=== PATIENT | male | born 1940 | race Caucasian/White ===

== ENCOUNTER 2016-11-16 13:37 | Emergency (ER) | payer BC ==
[~2016-11-16] VITALS: Ht 175.3 cm; Wt 85.7 kg
[~2016-11-16 13:37] MED LIST: Aricept PO; CALCIUM CARBON600 M1 PO; Glucosamine/Chondroi PO; ISOSORBIDE DINITRATE PO; LAMISIL250 MG PO; LIPITOR40 MG PO; LOPRESSOR25 MG PO; NITROSTAT,NITR0.4 M1 SL; PLAVIX75 MG PO; Prevacid PO
[2016-11-16 14:10] LABS: EOSINOPHIL (%) 0 % (0-5); HEMATOCRIT 38.3 % (38.0-50.0); IMMATURE GRANULOCYTE (%) 0.6 % (0.0-0.7); LYMPHOCYTE COUNT 0.7 K/uL (1.0-2.8); MCH 33.6 PG (29.0-34.0); MCHC 35.5 G/DL (30.0-36.0); MCV 94.6 FL (86-99); MEAN PLAT.VOLUME 9.9 uM^3 (9.0-12.4); MONOCYTE (%) 13.6 % (3-12); MONOCYTE COUNT 0.7 K/uL (0-0.8); NEUTROPHIL (%) 72.6 % (45-76); PLATELET COUNT 134 K/uL (156-360); RBC DIS.WIDTH-SD 44.6 % (39-53); RED BLOOD COUNT 4.05 M/uL (4.00-5.50); WHITE BLOOD COUNT 5.5 K/uL (4.1-10.2)
[2016-11-16 14:24] LABS: CHLORIDE 90 mEq/L (99-109); POTASSIUM 4.2 mEq/L (3.7-5.4); SODIUM 134 mEq/L (136-147)
[2016-11-16 14:27] LABS: GLUCOSE 112 mg/dL (70-99)
[2016-11-16 14:28] LABS: ANION GAP 25 MEQ/L (2-14)
[2016-11-16 14:29] LABS: TOTAL BILIRUBIN 1.9 mg/dL (0.0-1.0)
[2016-11-16 14:30] LABS: ALKALINE PHOSPHATASE 119 IU/L (3-129); GFR ESTIMATE (CALCULATED) 49 mL/min/
[2016-11-16 14:32] LABS: UREA NITROGEN (BUN) 34 mg/dL (9-23)
[2016-11-16 14:34] LABS: LIPASE 64 U/L (1.0-51.0)
[2016-11-16 15:03] LABS: ADD MIUA? YES; BILIRUBIN NEGATIVE; BLOOD SMALL; COLOR YELLOW ((YELLOW)); GLUCOSE (STRIP) NEGATIVE; KETONES 80; LEUKOCYTES NEGATIVE; NITRITE NEGATIVE; PROTEIN (STRIP) 100; SPECIFIC GRAVITY 1.019 (1.000-1.030)
[2016-11-16 15:21] LABS: BACTERIA RARE /HPF; EPITHELIAL CELLS RARE /HPF; HYALINE CASTS 20-30 /LPF; MUCUS TRACE /LPF; RED BLOOD CELLS 0-5 /HPF (0-5); UCUL ADDED? NO; WHITE BLOOD CELLS 0-5 /HPF (0-5)
[2016-11-16 16:45] VITALS: BP 120/73
[2016-11-16] MEDS ORDERED: ZOFRAN4 MG PO (16:47)
== END 2016-11-16 17:31 | disposition left against medical advice (07) ==
LOC: EME 13:37
PROVIDERS: Emergency Medicine
DX: R11.10 Vomiting, unspecified (principal); R19.7 Diarrhea, unspecified; E86.0 Dehydration; I10 Essential (primary) hypertension; I25.2 Old myocardial infarction; K21.9 Gastro-esophageal reflux disease without esophagitis; Z87.891 Personal history of nicotine dependence
CPT/HCPCS: 74176; 80053; 81003; 83605; 83690; 85025; 99281; 99285; J2405; J7030

== ENCOUNTER 2017-02-13 13:05 | Inpatient (IN) | payer BC ==
[~2017-02-13] VITALS: Ht 185.4 cm; Wt 89.6 kg
[~2017-02-13 13:05] MED LIST changes: +ZOFRAN4 MG PO
[2017-02-13 13:38] LABS: EOSINOPHIL (%) 0 % (0-5); HEMATOCRIT 37.9 % (38.0-50.0); IMMATURE GRANULOCYTE (%) 1.4 % (0.0-0.7); IMMATURE GRANULOCYTE COUNT 0.1 K/uL; INSTRUMENT ABS NEUTROPHIL CT 5.9 K/uL; LYMPHOCYTE COUNT 1.5 K/uL (1.0-2.8); MCH 33.2 PG (29.0-34.0); MCHC 33.8 G/DL (30.0-36.0); MCV 98.4 FL (86-99); MEAN PLAT.VOLUME 9.9 uM^3 (9.0-12.4); MONOCYTE (%) 10.8 % (3-12); MONOCYTE COUNT 0.9 K/uL (0-0.8); NEUTROPHIL (%) 70.1 % (45-76); NEUTROPHIL COUNT 5.9 K/uL (1.8-6.4); PLATELET COUNT 214 K/uL (156-360); RBC DIS.WIDTH-CV 14.8 % (11.8-14.6); RBC DIS.WIDTH-SD 53.2 % (39-53); RED BLOOD COUNT 3.85 M/uL (4.00-5.50); WHITE BLOOD COUNT 8.4 K/uL (4.1-10.2)
[2017-02-13 13:49] LABS: CHLORIDE 94 mEq/L (99-109); POTASSIUM 5.2 mEq/L (3.7-5.4); SODIUM 129 mEq/L (136-147)
[2017-02-13 13:50] LABS: GLUCOSE 92 mg/dL (70-99)
[2017-02-13 13:52] LABS: ANION GAP 20 MEQ/L (2-14)
[2017-02-13 13:54] LABS: GFR ESTIMATE (CALCULATED) 28 mL/min/
[2017-02-13 13:55] LABS: UREA NITROGEN (BUN) 48 mg/dL (9-23)
[2017-02-13 13:59] LABS: TROP-I INTERPRETATION NEGATIVE; TROPONIN-I < 0.01 ng/mL (0.0-0.30)
[2017-02-13 14:25] LABS: BILIRUBIN NEGATIVE; BLOOD NEGATIVE; COLOR YELLOW ((YELLOW)); GLUCOSE (STRIP) NEGATIVE; KETONES NEGATIVE; LEUKOCYTES NEGATIVE; NITRITE NEGATIVE; PROTEIN (STRIP) NEGATIVE; SPECIFIC GRAVITY 1.011 (1.000-1.030); UROBILINOGEN 0.2 MG/DL (0.2-1.0)
[2017-02-13 14:27] LABS: ADD MIUA? NO; UCUL ADDED? NO
[2017-02-13] MEDS ORDERED: IMDUR30 MG PO (16:34)
[2017-02-13] MEDS ORDERED: LOPRESSOR100 M1 PO (16:34)
[2017-02-13] MEDS ORDERED: LASIX40 MG PO (16:35)
[2017-02-13] MEDS ORDERED: XARELTO20 MG PO (16:36)
[2017-02-13] MEDS ORDERED: SPIRONOLACTONE25 MG PO (16:36)
[2017-02-13] MEDS ORDERED: LISINOPRIL10 MG PO (16:37)
[2017-02-13 18:02] VITALS: BP 105/56
[2017-02-13 18:12] VITALS: BP 105/56
[2017-02-13 19:46] LABS: TROP-I INTERPRETATION NEGATIVE; TROPONIN-I 0.03 ng/mL (0.0-0.30)
[2017-02-13 20:00] VITALS: BP 100/59
[2017-02-13 23:20] VITALS: BP 107/59
[2017-02-13 23:52] VITALS: BP 107/59; BP 123/70
[2017-02-14 00:24] LABS: UR CREATININE CONCENTRATION 119.3 MG/DL
[2017-02-14 02:35] LABS: CHLORIDE 98 mEq/L (99-109); POTASSIUM 5.2 mEq/L (3.7-5.4); SODIUM 129 mEq/L (136-147)
[2017-02-14 02:41] LABS: GLUCOSE 120 mg/dL (70-99)
[2017-02-14 02:44] LABS: GFR ESTIMATE (CALCULATED) 42 mL/min/
[2017-02-14 02:45] LABS: UREA NITROGEN (BUN) 48 mg/dL (9-23)
[2017-02-14 02:47] LABS: TROP-I INTERPRETATION NEGATIVE; TROPONIN-I < 0.01 ng/mL (0.0-0.30)
[2017-02-14 08:20] VITALS: BP 123/69
[2017-02-14 12:29] VITALS: BP 103/60
[2017-02-14 16:09] VITALS: BP 115/69
[2017-02-14 20:00] VITALS: BP 118/65
[2017-02-14 22:40] VITALS: BP 159/96
[2017-02-14 23:55] VITALS: BP 113/68
[2017-02-15 03:53] VITALS: BP 117/68
[2017-02-15 05:02] LABS: HEMATOCRIT 32.2 % (38.0-50.0); MCH 33.7 PG (29.0-34.0); MCHC 34.5 G/DL (30.0-36.0); MCV 97.9 FL (86-99); MEAN PLAT.VOLUME 10.8 uM^3 (9.0-12.4); PLATELET COUNT 159 K/uL (156-360); RBC DIS.WIDTH-CV 14.5 % (11.8-14.6); RBC DIS.WIDTH-SD 52.6 % (39-53); RED BLOOD COUNT 3.29 M/uL (4.00-5.50); WHITE BLOOD COUNT 4.5 K/uL (4.1-10.2)
[2017-02-15 05:45] LABS: ANION GAP 9 MEQ/L (2-14); CHLORIDE 104 MEQ/L (99-109); MAGNESIUM 1.8 mg/dl (1.3-2.7); POTASSIUM 4.3 MEQ/L (3.7-5.4); SAMPLE HEMOLYSIS CHECK 0; SAMPLE ICTERIC CHECK 0; SAMPLE LIPEMIA CHECK 0; SODIUM 134 MEQ/L (136-147)
[2017-02-15 05:50] LABS: GFR ESTIMATE (CALCULATED) > 59 mL/min/; GLUCOSE 107 mg/dL (70-99); UREA NITROGEN (BUN) 26 mg/dL (9-23)
[2017-02-15 07:26] VITALS: BP 128/61
[2017-02-15] MEDS ORDERED: FUROSEMIDE20 MG PO (11:19)
[2017-02-15 12:00] VITALS: BP 111/65
== END 2017-02-15 14:59 | disposition home or self-care (01) | DRG 683 ==
LOC: EME → EDBD 13:05 → 4EAST 15:38 → EDOF 15:38 → 4EAST 17:28
PROVIDERS: Emergency Medicine; Internal Medicine; Physician Assistant
DX: N17.9 Acute kidney failure, unspecified (principal); E87.1 Hypo-osmolality and hyponatremia; E87.2 Acidosis; I31.3 Pericardial effusion (noninflammatory); E78.5 Hyperlipidemia, unspecified; N18.3 Chronic kidney disease, stage 3 (moderate); I48.2 Chronic atrial fibrillation; I25.10 Atherosclerotic heart disease of native coronary artery without angina pectoris; K21.9 Gastro-esophageal reflux disease without esophagitis; I12.9 Hypertensive chronic kidney disease with stage 1 through stage 4 chronic kidney disease, or unspecified chronic kidney disease; K80.20 Calculus of gallbladder without cholecystitis without obstruction; E86.0 Dehydration; F10.10 Alcohol abuse, uncomplicated; I25.2 Old myocardial infarction; Z79.01 Long term (current) use of anticoagulants; Z87.891 Personal history of nicotine dependence; Z95.0 Presence of cardiac pacemaker; Z95.1 Presence of aortocoronary bypass graft; Z82.49 Family history of ischemic heart disease and other diseases of the circulatory system; Z83.3 Family history of diabetes mellitus
CPT/HCPCS: 70450; 71010; 76770; 80048; 81003; 82436; 82570; 83605; 83735; 84156; 84300; 84484; 85025; 85027; 87040; 93005; 93306; 93880; 99281; 99285; J2405; J7030

== ENCOUNTER 2017-04-07 12:02 | Emergency (ER) | payer BC ==
[~2017-04-07] VITALS: Ht 175.3 cm; Wt 104.2 kg
[~2017-04-07 12:02] MED LIST changes: +FUROSEMIDE20 MG PO; +IMDUR30 MG PO; +LASIX40 MG PO; +LISINOPRIL10 MG PO; +LOPRESSOR100 M1 PO; +SPIRONOLACTONE25 MG PO; +XARELTO20 MG PO
[2017-04-07] MEDS ORDERED: ALLEGRA ALLERG180 MG PO (13:25)
[2017-04-07 14:13] LABS: HEMATOCRIT 34.3 % (38.0-50.0); MCH 33.4 PG (29.0-34.0); MCHC 34.1 G/DL (30.0-36.0); MEAN PLAT.VOLUME 9.8 uM^3 (9.0-12.4); PLATELET COUNT 230 K/uL (156-360); RBC DIS.WIDTH-CV 14.4 % (11.8-14.6); RBC DIS.WIDTH-SD 51.4 % (39-53); WHITE BLOOD COUNT 7.6 K/uL (4.1-10.2)
[2017-04-07 14:21] LABS: CHLORIDE 101 mEq/L (99-109); POTASSIUM 3.6 mEq/L (3.7-5.4); SODIUM 136 mEq/L (136-147)
[2017-04-07 14:23] LABS: GLUCOSE 101 mg/dL (70-99)
[2017-04-07 14:24] LABS: ANION GAP 11 MEQ/L (2-14)
[2017-04-07 14:25] LABS: TOTAL BILIRUBIN 0.8 mg/dL (0.0-1.0)
[2017-04-07 14:27] LABS: ALKALINE PHOSPHATASE 104 IU/L (3-129); GFR ESTIMATE (CALCULATED) > 59 mL/min/
[2017-04-07 14:28] LABS: UREA NITROGEN (BUN) 22 mg/dL (9-23)
[2017-04-07 14:33] LABS: TROP-I INTERPRETATION NEGATIVE; TROPONIN-I < 0.01 ng/mL (0.0-0.30)
[2017-04-07 17:05] VITALS: BP 115/81
== END 2017-04-07 17:26 | disposition home or self-care (01) ==
LOC: EME 12:02
PROVIDERS: Emergency Medicine
DX: R60.0 Localized edema (principal); R06.02 Shortness of breath; I82.512 Chronic embolism and thrombosis of left femoral vein; I10 Essential (primary) hypertension; F02.80 Dementia in other diseases classified elsewhere, unspecified severity, without behavioral disturbance, psychotic disturbance, mood disturbance, and anxiety; G30.9 Alzheimer's disease, unspecified; Z95.1 Presence of aortocoronary bypass graft; Z79.01 Long term (current) use of anticoagulants; Z87.891 Personal history of nicotine dependence
CPT/HCPCS: 71020; 80053; 84484; 85027; 93005; 93970; 99281; 99285